=== PATIENT | male | born 1985 | race Caucasian/White ===

== ENCOUNTER 2023-12-21 17:29 | Emergency (ER) | payer MEDICAID ==
[~2023-12-21] VITALS: Ht 172.7 cm; Wt 77.3 kg
[~2023-12-21 17:29] MED LIST: IBUP-1984 PO
[2023-12-21 18:48] LABS: BASOPHILS % (AUTO) 0.3 % (0-1); EOSINOPHILS % (AUTO) 0 % (0-6); HEMATOCRIT 54.7 % (42.0-52.0); LYMPHOCYTES % (AUTO) 7.9 % (21-51); MEAN CORPUSCULAR HEMOGLOBIN 31.2 PG (27.0-31.0); MEAN CORPUSCULAR HGB CONC 33.6 g/dL (33.0-36.5); MEAN CORPUSCULAR VOLUME 92.7 FL (78-98); MEAN PLATELET VOLUME 8.8 FL (7.4-10.4); MONOCYTES # (AUTO) 0.3 X10'3 (0-0.9); MONOCYTES % (AUTO) 2.4 % (2-12); NEUTROPHILS # (AUTO) 10.9 X10'3 (1.8-7.7); NEUTROPHILS % (AUTO) 89.4 % (42-75); PLATELET COUNT 288 X10'3 (140-440); RED BLOOD COUNT 5.91 X10'6 (4.70-6.10); RED CELL DISTRIBUTION WIDTH 13.2 % (11.5-14.5); WHITE BLOOD COUNT 12.1 X10'3 (4.5-11.0)
[2023-12-21 18:56] LABS: HEMOGLOBIN 18.4 g/dl (14.0-17.9)
[2023-12-21 18:58] LABS: ALBUMIN 3.6 G/DL (3.4-5.0); ANION GAP 9 (8-16); BLOOD UREA NITROGEN 25 MG/DL (7-18); BUN/CREATININE RATIO 17.6 (10.0-20.0); CALCIUM 9.5 MG/DL (8.5-10.1); CHLORIDE 99 MMOL/L (99-107); CREATININE 1.42 MG/DL (0.60-1.10); GLUCOSE 123 MG/DL (70-104); MAGNESIUM 2.8 MG/DL (1.5-2.4); POTASSIUM 4.7 MMOL/L (3.5-5.1); SODIUM 134 MMOL/L (135-145); TOTAL CARBON DIOXIDE 25.7 MMOL/L (24-32); eCRCL 69 ML/MIN; eGFR 56 ML/MIN
[2023-12-21 21:24] VITALS: BP 128/72; PULSE 93; RESP 18; TEMP 98.6; O2SAT 96
[2023-12-21] MEDS ORDERED: diazepam inj 5 MG/ML inj. ONE (21:45)
== END 2023-12-21 21:28 | disposition home or self-care (01) ==
LOC: ER 17:30
DX: R50.9 Fever, unspecified (principal); B34.9 Viral infection, unspecified; R79.89 Other specified abnormal findings of blood chemistry; Z79.1 Long term (current) use of non-steroidal anti-inflammatories (NSAID)
CPT/HCPCS: 36415; 71045; 80048; 83605; 83735; 84145; 85025; 87040; 93005; 99285; J3360